=== PATIENT | female | born 1990 | race Caucasian/White ===

== ENCOUNTER 2020-05-11 12:44 | Outpatient (REF) | payer OTHER, SELFPAY | END 2020-05-11 12:45 | disposition home or self-care (01) | LOC: HO.LAB 12:44 | PROVIDERS: Visit Provider Internal Medicine | DX: Z20.828 Contact with and (suspected) exposure to other viral communicable diseases (principal) | CPT/HCPCS: C9803; U0003 ==

== ENCOUNTER 2023-01-06 16:48 | Emergency (ER) | payer OTHER, SELFPAY ==
[2023-01-06 17:05] VITALS: BP 133/74; BP 140/70; PULSE 90; PULSE 96; RESP 16; TEMP 36.5; O2SAT 100; O2SAT 93; BMI 24.8
[2023-01-06 20:00] VITALS: BP 120/78; PULSE 80; RESP 16; TEMP 37; O2SAT 98
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
== END 2023-01-06 22:53 | disposition home or self-care (01) ==
PROVIDERS: Emergency Provider Emergency Medicine
DX: S91.001A Unspecified open wound, right ankle, initial encounter (principal); W34.00XA Accidental discharge from unspecified firearms or gun, initial encounter; Y93.9 Activity, unspecified; Y92.9 Unspecified place or not applicable; Y99.9 Unspecified external cause status; R20.0 Anesthesia of skin; M25.471 Effusion, right ankle
CPT/HCPCS: 29515; 99283; 99284

== ENCOUNTER 2023-01-09 10:40 | Outpatient (REF) | payer OTHER, SELFPAY ==
--- NOTE | ~2023-01-09 | XR_ITS ---
EXAMINATION: XR ANKLE, RIGHT CLINICAL INFORMATION: Pain. COMPARISON: None available. TECHNIQUE: AP, lateral, and mortise views of the right ankle. FINDINGS: There is an oblique, comminuted of fracture with butterfly fragment noted of the distal right tibial shaft. There are displaced fracture fragments, most pronounced laterally towards the interosseous membrane. The fracture pattern does not transgress the distal tibial articular surface. There is adjacent soft tissue swelling and small radiopaque calcifications are noted within the soft tissues. The ankle mortise is intact. Boehler's angle is normal. XR/XR ankle RT min 3V IMPRESSION: Findings are consistent with a comminuted, displaced oblique fracture of the distal right tibial shaft, with butterfly fragment.
== END 2023-01-09 10:41 | disposition home or self-care (01) ==
LOC: HO.HOSX 10:40
PROVIDERS: Visit Provider Physician Assistant
DX: S91.031A Puncture wound without foreign body, right ankle, initial encounter (principal); S82.301A Unspecified fracture of lower end of right tibia, initial encounter for closed fracture
CPT/HCPCS: 27786; 29405; 73610; 99202

== ENCOUNTER 2023-01-16 11:03 | Outpatient (REF) | payer OTHER, SELFPAY ==
--- NOTE | ~2023-01-16 | XR_ITS ---
EXAMINATION: XR ANKLE, RIGHT CLINICAL INFORMATION: Pain. COMPARISON: 01/10/2023 TECHNIQUE: AP, lateral, and mortise views of the right ankle. FINDINGS: Overall appearance of the comminuted compound fracture of the distal tibia is similar with no significant healing at this time. The fracture lines are still evident. Alignment Marcel metallic fragments again noted within the adjacent soft tissues. Diffuse soft tissue swelling. Ankle mortise remains anatomic. No other change. XR/XR ankle RT min 3V IMPRESSION: No significant change in appearance of the comminuted compound fracture of the distal tibia.
== END 2023-01-16 11:04 | disposition home or self-care (01) ==
LOC: HO.HOSX 11:03
PROVIDERS: Visit Provider Physician Assistant
DX: S91.031A Puncture wound without foreign body, right ankle, initial encounter (principal); S82.301A Unspecified fracture of lower end of right tibia, initial encounter for closed fracture; W34.00XA Accidental discharge from unspecified firearms or gun, initial encounter; Y93.9 Activity, unspecified; Y92.9 Unspecified place or not applicable; Y99.9 Unspecified external cause status
CPT/HCPCS: 29405; 73610

== ENCOUNTER 2023-01-16 13:30 | Outpatient (AMB) | payer OTHER, SELFPAY ==
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
[2023-01-16 14:12] VITALS: BMI 24.8
== END 2023-01-16 15:01 | disposition home or self-care (01) ==
PROVIDERS: Visit Provider Physician Assistant
DX: S82.301D Unspecified fracture of lower end of right tibia, subsequent encounter for closed fracture with routine healing (principal)
CPT/HCPCS: 29405; 99024

== ENCOUNTER 2023-01-30 11:41 | Outpatient (REF) | payer OTHER, SELFPAY ==
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
== END 2023-01-30 11:42 | disposition home or self-care (01) ==
LOC: HO.HOSX 11:41
PROVIDERS: Visit Provider Physician Assistant
DX: S91.031D Puncture wound without foreign body, right ankle, subsequent encounter (principal); S82.301D Unspecified fracture of lower end of right tibia, subsequent encounter for closed fracture with routine healing
CPT/HCPCS: 29405; 73610

== ENCOUNTER 2023-01-30 12:32 | Outpatient (AMB) | payer OTHER, SELFPAY ==
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
[2023-01-30 13:11] VITALS: BMI 24.8
== END 2023-01-30 14:12 | disposition home or self-care (01) ==
PROVIDERS: Visit Provider Physician Assistant
DX: S91.031A Puncture wound without foreign body, right ankle, initial encounter (principal); S82.309A Unspecified fracture of lower end of unspecified tibia, initial encounter for closed fracture
CPT/HCPCS: 29405; 99024

== ENCOUNTER 2023-02-13 14:30 | Outpatient (AMB) | payer OTHER, SELFPAY ==
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
[2023-02-13 14:52] VITALS: BMI 24.8
== END 2023-02-13 15:22 | disposition home or self-care (01) ==
LOC: HO.HOS 14:30
PROVIDERS: Visit Provider Physician Assistant
DX: S91.031D Puncture wound without foreign body, right ankle, subsequent encounter (principal); S82.301D Unspecified fracture of lower end of right tibia, subsequent encounter for closed fracture with routine healing
CPT/HCPCS: 99024

== ENCOUNTER 2023-02-13 15:21 | Outpatient (REF) | payer OTHER, SELFPAY ==
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
== END 2023-02-13 15:22 | disposition home or self-care (01) ==
LOC: HO.HOSX 15:21
PROVIDERS: Visit Provider Physician Assistant
DX: S91.031D Puncture wound without foreign body, right ankle, subsequent encounter (principal); S82.301D Unspecified fracture of lower end of right tibia, subsequent encounter for closed fracture with routine healing
CPT/HCPCS: 73610

== ENCOUNTER 2023-03-06 09:04 | Outpatient (REF) | payer OTHER, SELFPAY | END 2023-03-06 09:05 | disposition home or self-care (01) | LOC: HO.HOSX 09:04 | PROVIDERS: Visit Provider Physician Assistant | DX: Z13.89 Encounter for screening for other disorder (principal) ==

== ENCOUNTER 2023-03-15 06:47 | Outpatient (REF) | payer OTHER, SELFPAY | END 2023-03-15 06:48 | disposition home or self-care (01) | LOC: HO.HOSX 06:47 | PROVIDERS: Visit Provider Physician Assistant | DX: Z13.89 Encounter for screening for other disorder (principal) ==

== ENCOUNTER 2023-03-20 17:16 | Outpatient (REF) | payer OTHER, SELFPAY | END 2023-03-20 17:17 | disposition home or self-care (01) | LOC: HO.HOSX 17:16 | PROVIDERS: Visit Provider Physician Assistant | DX: Z13.89 Encounter for screening for other disorder (principal) ==

== ENCOUNTER 2023-04-22 12:36 | Outpatient (REF) | payer OTHER, SELFPAY | END 2023-04-22 12:37 | disposition home or self-care (01) | LOC: HO.HOSX 12:36 | PROVIDERS: Visit Provider Physician Assistant | DX: Z13.89 Encounter for screening for other disorder (principal) ==